=== PATIENT | female | born 1970 | race Caucasian/White ===

== ENCOUNTER → 2019-12-03 09:10 | Outpatient (BNVA) | payer OTHER, SELFPAY | PROVIDERS: Family Provider Family Medicine; PCP Family Medicine; Visit Provider Specialist | DX: G35 Multiple sclerosis (principal) | CPT/HCPCS: 99213 ==

== ENCOUNTER → 2020-12-08 09:04 | Outpatient (BNVA) | payer OTHER, SELFPAY | PROVIDERS: Family Provider Family Medicine; PCP Family Medicine; Visit Provider Specialist | DX: G35 Multiple sclerosis (principal); G25.0 Essential tremor | CPT/HCPCS: 99214 ==

== ENCOUNTER 2020-12-31 10:28 | Outpatient (CLI) | payer OTHER, SELFPAY ==
--- NOTE | 2020-12-31 10:32 | MR_ITS ---
WS: [id number] MRI HEAD WITH CONTRAST TECHNIQUE: Sagittal T1, T2 axial, T2 axial FLAIR, axial susceptibility weighted imaging, axial diffus ion weighted images, and coronal T2 images were obtained. Pre and post-T1 axial and post T1 coronal i mages. ADC and FSPGR images. CLINICAL INFORMATION: G35 - Multiple sclerosis COMPARISON: FINDINGS: No evidence of restricted diffusion to suggest acute ischemia. Ventricular system and basal cisterns are patent. Mild patchy supratentorial white matter changes compatible with history of demyelinating disease and small vessel changes. A few pericallosal lesions are unchanged. Number and distribution o f lesions is not significantly changed. No evidence of disease progression. No abnormal gadolinium enhancement. No enhancing lesions to indicate active disease. No significant p arenchymal volume loss. No significant T1 hypointense lesion load. Normal optic chiasm and pituitary infundibulum. Normal dural venous sinuses. Normal corpus callosum. No significant atrophy of the wiliam us callosum. MR/MR head wo/w con [id number] IMPRESSION: 1. Mild patchy supratentorial white matter changes compatible with history of demyelinating disease with superimposed small vessel disease. This is unchanged from previous. 2. No new or enhancing lesions. 3. Mild parenchymal volume loss. 4. No significant atrophy of the corpus callosum. 5. No significant T1 hypointense lesion load. 6. No hemosiderin on susceptibly weighted images. 7. No other significant changes from previous.
[2020-12-31] MEDS: gadobenate dimeglumine 20 mL vial IV (11:37)
== END 2020-12-31 10:29 | disposition home or self-care (01) ==
LOC: RADSHAW 10:31
PROVIDERS: Family Provider Family Medicine; PCP Family Medicine; Visit Provider Specialist
DX: G35 Multiple sclerosis (principal)
CPT/HCPCS: 70553; A9577

== ENCOUNTER 2022-03-17 10:59 | Outpatient (CLI) | payer BC, SELFPAY ==
--- NOTE | 2022-03-17 11:00 | MR_ITS ---
WS: [id number] MRI HEAD WITH CONTRAST TECHNIQUE: Sagittal T1, T2 axial, T2 axial FLAIR, axial susceptibility weighted imaging, axial diffus ion weighted images, and coronal T2 images were obtained. Pre and post-T1 axial and post T1 coronal i mages. ADC and FSPGR images. CLINICAL INFORMATION: G35 - Multiple sclerosis COMPARISON: MRI December 31, 2020, 5 30,019 and 2 6017 FINDINGS: No evidence of restricted diffusion to suggest acute ischemia. Ventricular system and basal cisterns are patent. Small punctate supratentorial white matter changes compatible with history of demyelinati ng disease. No significant infratentorial lesions. The number and distribution of lesions is not sign ificantly changed compared to December 31, 2020. No evidence of progression. No hemosiderin on the susceptibly weighted imaging. Normal optic chiasm and pituitary infundibulum. T emporal lobes and hippocampal formations are normal in appearance. Normal posterior fossa. Normal vas cular flow voids at the skull base. No extra-axial fluid collections. No evidence of mass or mass eff ect. Paranasal sinuses and mastoid air cells well aerated. No enhancing lesions to indicate active disease. Normal cavernous sinuses and Meckel's cave. Normal d ural venous sinuses. No significant corpus callosal atrophy. No significant T1 hypointense lesion pia d. No other significant changes compared to previous. MR/MR head wo/w con [id number] IMPRESSION: Overall no significant changes compared to December 31, 2020. 1. Mild punctate patchy supratentorial white matter changes compatible with hi story of demyelinating disease in the appropriate clinical setting.This is unch anged from previous. No evidence of progression. 2. No enhancing lesions to indicate active disease. 3. Mild parenchymal volume loss. 4. No significant atrophy of the corpus callosum. 5. No significant T1 hypointense lesion load.
[2022-03-17] MEDS: gadobenate dimeglumine 20 mL vial IV (12:00)
== END 2022-03-17 11:00 | disposition home or self-care (01) ==
PROVIDERS: PCP Family Medicine; Visit Provider Specialist
DX: G35 Multiple sclerosis (principal)
CPT/HCPCS: 70553

== ENCOUNTER 2023-06-30 12:59 | Outpatient (CLI) | payer BC, SELFPAY ==
--- NOTE | 2023-06-30 13:45 | MR_ITS ---
WS: [id number] MR CERVICAL SPINE WO/W DATE OF EXAMINATION: 06/30/2023 COMPARISON: 03/18/2014 HISTORY: Pain in neck. Numbness when lifting arms above head. TECHNIQUE: Sagittal T1, T2 and T2 inversion recovery; axial T2, T2 gradient and fiesta. Post gadolini um imaging with fat saturation technique. FINDINGS:Straightening of the normal cervical lordosis. No high grade central canal narrowing. Cord s ignal is normal. No abnormal gadolinium enhancement. No visualized demyelinating lesions within the c ervical cord. C2-3: Mild facet arthropathy. Mild LEFT bony foraminal narrowing. Spinal canal is patent. C3-4: Mild disc osteophytic ridging. Spinal canal is patent. Mild LEFT bony foraminal narrowing. Mild LEFT facet arthropathy. C4-5: Disc osteophyte complex with endplate ridging. Mild LEFT bony foraminal narrowing. Mild facet a rthropathy. C5-6: Disc osteophyte complex with slight indentation on the cervical cord. Mild central canal stenos is. Moderate LEFT bony foraminal narrowing. Mild facet arthropathy. C6-7: Disc osteophyte complex with mild central canal stenosis and slight indentation and flattening of the cervical cord. Mild LEFT bony foraminal narrowing. C7-T1: Mild LEFT bony foraminal narrowing. Spinal canal and RIGHT foramen are patent. IMPRESSION: Some images graded by motion. 1. Straightening of the normal cervical lordosis. Disc osteophyte protrusions worse at C5-C6 and C6- C7. 2. No visualized demyelinating lesions within the cervical cord considering motion. No abnormal gado linium enhancement. 3. No significant cord atrophy. 4. Mild central canal stenosis C5-C6 and C6-C7 due to central disc osteophyte protrusions with sligh t indentation and flattening of the cervical cord. This is progressed since 2013 5. Moderate LEFT C5-C6 bony foraminal narrowing progressed compared to previous. 6. Mild LEFT C6-7 and LEFT C7-T1 bony foraminal narrowing.
[2023-06-30] MEDS: gadobenate dimeglumine 20 mL vial IV (14:37)
== END 2023-06-30 13:00 | disposition home or self-care (01) ==
LOC: RAD 12:59
PROVIDERS: PCP Family Medicine; Visit Provider Specialist
DX: G35 Multiple sclerosis (principal); R20.0 Anesthesia of skin; M50.222 Other cervical disc displacement at C5-C6 level; M48.02 Spinal stenosis, cervical region
CPT/HCPCS: 72156; A9577

== ENCOUNTER 2024-07-23 11:16 | Outpatient (CLI) | payer OTHER, SELFPAY ==
--- NOTE | 2024-07-23 11:45 | MR_ITS ---
WS: [id number] MRI HEAD WITH CONTRAST TECHNIQUE: Sagittal T1, T2 axial, T2 axial FLAIR, axial susceptibility weighted imaging, axial diffus ion weighted images, and coronal T2 images were obtained. Pre and post-T1 axial and post T1 coronal i mages. ADC and FSPGR images. CLINICAL INFORMATION: G35 - Multiple sclerosis COMPARISON: MRI 03/17/2022 FINDINGS: Stable small punctate supratentorial white matter changes compatible with history of demyelinating di sease. No infratentorial lesions. The number and distribution of lesions is not significantly changed compared to previous. No evidence of progression. No enhancing lesions to indicate active disease. N o significant corpus callosal atrophy. No significant T1 hypointense lesion load. No evidence of restricted diffusion to suggest acute ischemia. Ventricular system and basal cisterns are patent. No hemosiderin on the susceptibly weighted imaging. Normal optic chiasm and pituitary in fundibulum. Temporal lobes and hippocampal formations are normal in appearance. Normal posterior fossa. Normal vascular flow voids at the skull base. No extra-axial fluid collection s. No evidence of mass or mass effect. Paranasal sinuses and mastoid air cells well aerated. Normal d ural venous sinuse. No other significant changes compared to previous. MR/MR head wo/w con [id number] IMPRESSION: 1. Stable small punctate foci in the supratentorial white matter compatible wi th history of demyelinating disease. 2. No evidence of progression. 3. No enhancing lesion to indicate active disease. 4. No other acute findings.
[2024-07-23] MEDS: gadobenate dimeglumine 20 mL vial IV (12:17)
== END 2024-07-23 11:17 | disposition home or self-care (01) ==
PROVIDERS: PCP Family Medicine; Visit Provider Specialist
DX: G35 Multiple sclerosis (principal); R93.89 Abnormal findings on diagnostic imaging of other specified body structures
CPT/HCPCS: 70553